=== PATIENT | male | born 1990 | race Caucasian/White ===

== ENCOUNTER 2017-09-05 22:54 | Emergency (ER) | payer OTHER ==
[~2017-09-05] VITALS: Ht 170.2 cm; Wt 78.6 kg
[2017-09-05] MEDS ORDERED: PERCOCET 5/325M1 TAB PO (23:35)
[2017-09-05] MEDS ORDERED: KEFLEX500 M1 PO (23:35)
[2017-09-06 00:04] VITALS: BP 124/70
== END 2017-09-06 00:13 | DRG 605 ==
LOC: ED 22:54
PROC: 0HQLXZZ Repair Left Lower Leg Skin, External Approach (ICD-10-PCS; principal; 2017-09-05)
DX: S81.812A Laceration without foreign body, left lower leg, initial encounter (principal); X99.8XXA Assault by other sharp object, initial encounter; Y92.143 Cell of prison as the place of occurrence of the external cause